=== PATIENT | female | born 1985 | race Caucasian/White ===

== ENCOUNTER → 2019-06-24 | Day surgery (SDC) | payer OTHER ==
--- NOTE | 2019-06-24 11:50 | RAD REPORT ---
EXAM DESCRIPTION: US - Breast Core BX w/US Guidance - 06/24/2019 10:40 am CLINICAL HISTORY: ICD N63.14,Z80.3 COMPARISON: May 2019 ultrasound TECHNIQUE: The risks, benefits alternatives to the procedure were explained to the patient and infor med consent obtained. Skin and subcutaneous tissues anesthetized with lidocaine. Under sonographic guidance, four 14 gauge vacuum assisted core biopsies of the 9 millimeter mass with in the lower right obtained. 2 centimeter specimens taken. Materials given to pathology. Subsequently a localizing clip was placed into the mass. Patient experienced no immediate complication IMPRESSION: Vacuum assisted core biopsies of the right breast mass
== END ==
LOC: DS 09:36
PROVIDERS: ATTEND Surgery
DX: D24.1 Benign neoplasm of right breast (principal); Z80.3 Family history of malignant neoplasm of breast
CPT/HCPCS: 19083; 88305